=== PATIENT | female | born 1980 ===

== ENCOUNTER 2018-04-26 15:01 | Emergency (ER) | payer BC ==
[2018-04-26] MEDS ORDERED: Sodium Chloride 0.9% 1,000 ML IV STA (15:18)
--- NOTE | 2018-04-26 15:23 | ED PDOC ---
HPI: Abdomen Time Seen by Provider: 04/26/18 15:11 Chief Complaint (Nursing): GI Problem Chief Complaint (Provider): Abdominal Pain History Per: Patient, EMS History/Exam Limitations: no limitations Onset/Duration Of Symptoms: Mins Current Symptoms Are (Timing): Still Present Additional Complaint(s): 37 year old female presents to the ED via EMS after experiencing lower abdominal pain and vomiting after eating oatmeal earlier today. States she has no saliva and has difficulty swallowing after vomiting. Denies diarrhea or fever. PMD: none provided Past Medical History Reviewed: Historical Data, Nursing Documentation, Vital Signs Vital Signs: Last Vital Signs Temp 98.6 F 04/26/18 15:15 Pulse 124 H 04/26/18 15:15 Resp 18 04/26/18 15:15 BP 119/80 04/26/18 15:15 Pulse Ox 100 04/26/18 15:15 - Medical History PMH: Hypothyroidism - Surgical History Surgical History: No Surg Hx - Family History Family History: States: Unknown Family Hx - Social History Current smoker - smoking cessation education provided: No Ex-Smoker (has not smoked in the last 12 months): Yes Alcohol: Social Drugs: Denies - Allergies Allergies/Adverse Reactions: Allergies Allergy/AdvReac Type Severity Reaction Status Date / Time naproxen Allergy RASH Verified 04/26/18 15:14 Review of Systems ROS Statement: Except As Marked, All Systems Reviewed And Found Negative Constitutional: Negative for: Fever Gastrointestinal: Positive for: Vomiting, Abdominal Pain. Negative for: Diarrhea Physical Exam - Reviewed Nursing Documentation Reviewed: Yes Vital Signs Reviewed: Yes - Physical Exam Appears: Positive for: Non-toxic, No Acute Distress Head Exam: Positive for: ATRAUMATIC, NORMOCEPHALIC Skin: Positive for: Normal Color, Warm, Dry ENT: Positive for: Other (no deviation of the uvula; able to speak in normal sentences). Negative for: Tonsillar Swelling (edema or erythema) Neck: Positive for: Normal (with no masses), Painless ROM, Supple Cardiovascular/Chest: Positive for: Regular Rate, Rhythm Respiratory: Positive for: Normal Breath Sounds. Negative for: Wheezing, Respiratory Distress Gastrointestinal/Abdominal: Positive for: Normal Exam, Soft. Negative for: Tenderness Back: Positive for: Normal Inspection. Negative for: L CVA Tenderness, R CVA Tenderness Extremity: Positive for: Normal ROM - Laboratory Results Result Diagrams: 04/26/18 15:55 04/26/18 15:55 - ECG O2 Sat by Pulse Oximetry: 100 (RA) Pulse Ox Interpretation: Normal Medical Decision Making Medical Decision Making: Initial Plan: --Alcohol serum stat --CMP --Drug screen --ED urine --ED urine dipstick --CBC --Sodium chloride 1000mL IV Scribe Attestation: Documented by Darius Arriaga acting as a scribe for Jeffery Kunz MD. Provider Scribe Attestation: All medical record entries made by the Scribe were at my direction and personally dictated by me. I have reviewed the chart and agree that the record accurately reflects my personal performance of the history, physical exam, medical decision making, and the department course for this patient. I have also personally directed, reviewed, and agree with the discharge instructions and disposition. Disposition - Clinical Impression Clinical Impression: Abdominal pain - Patient ED Disposition Is Patient to be Admitted: Transfer of Care - Disposition Disposition: Transfer of Care Disposition Time: 19:00 Condition: FAIR Forms: [facility] (E[place]ian) Patient Signed Over To: Dereje Torres
[2018-04-26 16:05] LABS: BASO % 0.4 % (0.0-2.0); EOS # 0.1 K/uL (0.0-0.7); EOS % 1.5 % (0.0-4.0); HEMOGLOBIN 13.4 g/dL (12.0-16.0); LYMPH # 2.4 K/uL (1.0-4.3); MEAN CELL VOLUME 91.1 fl (81.0-99.0); MEAN CORPUSCULAR HEMOGLOBIN 30.3 pg (27.0-31.0); MEAN CORPUSCULAR HGB CONC 33.3 g/dL (33.0-37.0); MEAN PLATELET VOLUME 8.4 fl (7.2-11.7); MONO # 0.4 K/uL (0.0-0.8); MONO % 5.2 % (0.0-10.0); NEUT # 5.4 K/uL (1.8-7.0); NEUT % 63.9 % (50.0-75.0); RBC 4.42 Mil/uL (3.80-5.20); RED CELL DISTRIBUTION WIDTH 12.9 % (11.5-14.5); WHITE BLOOD COUNT 8.4 K/uL (4.8-10.8)
[2018-04-26 16:16] LABS: ALB/GLOB RATIO 1.1 (1.0-2.1); ALBUMIN 4.1 g/dL (3.5-5.0); ALT/SGPT 23 U/L (9-52); AST/SGOT 26 U/L (14-36); BLOOD UREA NITROGEN 9 mg/dl (7-17); CALCIUM 9.3 mg/dL (8.4-10.2); GFR NON-AFRICAN AMERICAN > 60
[2018-04-26 16:27] LABS: BARBITURATES, UR NEGATIVE (NEGATIVE); BENZODIAZEPINES, UR NEGATIVE (NEGATIVE); OPIATES, UR NEGATIVE (NEGATIVE); PHENCYCLIDINE, UR NEGATIVE (NEGATIVE)
[2018-04-26] MEDS ORDERED: Sodium Chloride 0.9% 50 ML IV ONE (19:12)
[2018-04-26] MEDS ORDERED: Iohexol 300 100 ML IJ ONE (19:12)
--- NOTE | 2018-04-26 20:13 | ED PDOC ---
- Laboratory Results Result Diagrams: 04/26/18 15:55 04/26/18 15:55 - ECG O2 Sat by Pulse Oximetry: 100 (RA) Medical Decision Making Medical Decision Makin:00 Patient endorsed to this provider from Dr. Kunz. Pending CT scan. 21:01 CT abdomen FINDINGS: LUNG BASES: The lung bases appear clear. No pleural effusions are seen. LIVER: Unremarkable. GALLBLADDER AND BILE DUCTS: The gallbladder appears within normal limits. No radioopaque gallstones are seen. No biliary ductal dilatation is evident. PANCREAS: Unremarkable. SPLEEN: Unremarkable. ADRENAL GLANDS: Unremarkable. KIDNEYS, URETERS, AND BLADDER: The kidneys appear within normal limits. There is no hydronephrosis or hydroureter. No urinary calculi are seen. STOMACH AND BOWEL: Thick walled fluid filled duodenum and loops of jejunum compatible with enteritis. Infectious and inflammatory etiologies are considered. APPENDIX: No evidence of acute appendicitis on CT examination. PERITONEUM: No free fluid. No free air. LYMPH NODES: No lymphadenopathy is evident. REPRODUCTIVE: Simple 1.5 cm left right ovarian cyst is seen. 2 cm right fundal mass is seen compatible with a fibroid. The uterus and ovaries are otherwise unremarkable. VASCULATURE: No evidence of abdominal aortic aneurysm. BONES: No aggressive appearing osseous lesion. No acute osseous pathology evident. MISCELLANEOUS: Fluid distended endometrial canal. Consider follow up with pelvic US. IMPRESSION: 1. Simple 1.5 cm left right ovarian cyst is seen. 2. 2 cm right fundal mass is seen compatible with a fibroid. 3. Fluid distended endometrial canal. Consider follow up with pelvic US. 4. Thick walled fluid filled duodenum and loops of jejunum compatible with enteritis. Infectious and inflammatory etiologies are considered. 2100 Patient re-evaluated at bedside, states she's feeling better, thirsty States she consumed a marijuana edible by accident, thinking it was fish oil, believes this to be the culprit for today's symptoms Patient no longer having vomiting, pain; ambulated to the bathroom on her own and drank water Well appearing upon discharge Scribe Attestation: Documented by Darius Arriaga acting as a scribe for Dereje Torres MD. Provider Scribe Attestation: All medical record entries made by the Scribe were at my direction and personally dictated by me. I have reviewed the chart and agree that the record accurately reflects my personal performance of the history, physical exam, medical decision making, and the department course for this patient. I have also personally directed, reviewed, and agree with the discharge instructions and disposition. Disposition - Clinical Impression Clinical Impression: Abdominal pain, Cannabis abuse - POA Present On Arrival: None - Disposition Disposition: Routine/Home Disposition Time: 21:00 Condition: FAIR Instructions: Acute Abdomen (Belly Pain), Marijuana Use and Addiction (DC) Forms: [employer] (Mongolian)
[2018-04-26 22:02] VITALS: BP 104/68; PULSE 81; RESP 16; TEMP 98.4
[2018-04-27 02:50] VITALS: O2SAT 100
--- NOTE | 2018-04-27 07:01 | CT ---
Date of service: 04/26/2018 PROCEDURE: CT Abdomen and Pelvis with and without intravenous contrast HISTORY: Abd pain COMPARISON: None. TECHNIQUE: Axial images of the abdomen were obtained in the pre contrast, portal venous and delayed phases of enhancement. Coronal and sagittal reformats were generated. Contrast dose: Radiation dose: Total exam DLP = 437.94 mGy-cm. This CT exam was performed using one or more of the following dose reduction techniques: Automated exposure control, adjustment of the mA and/or kV according to patient size, and/or use of iterative reconstruction technique. FINDINGS: LOWER THORAX: Unremarkable. LIVER: Unremarkable. No gross lesion or ductal dilatation. GALLBLADDER AND BILE DUCTS: Unremarkable. PANCREAS: Unremarkable. No gross lesion or ductal dilatation. SPLEEN: Unremarkable. ADRENALS: Unremarkable. No mass. KIDNEYS AND URETERS: Unremarkable. No hydronephrosis. No solid mass. VASCULATURE: Unremarkable. No aortic aneurysm. No aortic atherosclerotic calcification or mural plaque present. BOWEL: Unremarkable. No obstruction. No gross mural thickening. APPENDIX: Normal appendix. PERITONEUM: Unremarkable. No free fluid. No free air. LYMPH NODES: Unremarkable. No enlarged lymph nodes. BLADDER: Unremarkable. REPRODUCTIVE: Unremarkable. BONES: No acute fracture. OTHER FINDINGS: None. IMPRESSION: Unremarkable pre and post contrast enhanced CT of the abdomen and pelvis.
== END 2018-04-26 22:40 | disposition home or self-care (01) ==
LOC: H.ER 15:01
DX: R10.30 Lower abdominal pain, unspecified (principal); N83.201 Unspecified ovarian cyst, right side; D25.9 Leiomyoma of uterus, unspecified; E03.9 Hypothyroidism, unspecified; F12.10 Cannabis abuse, uncomplicated
CPT/HCPCS: 74177; 80053; 81025; 85025; 99285; G0480; J7030; Q9967